=== PATIENT | female | born 1965 | race Caucasian/White ===

== ENCOUNTER 2019-03-13 06:00 | Day surgery (SDC) | payer OTHER | END 2019-03-13 18:25 | disposition home or self-care (01) | LOC: CIR.AMB 06:00 | DX: N84.0 Polyp of corpus uteri (principal) ==

== ENCOUNTER 2022-08-25 09:28 | Outpatient (CLI) | payer OTHER | END 2022-08-25 09:29 | disposition home or self-care (01) | LOC: LAB 09:28 | PROVIDERS: ATTEND Obstetrics & Gynecology | DX: R53.1 Weakness (principal); R30.0 Dysuria; E55.9 Vitamin D deficiency, unspecified; E11.9 Type 2 diabetes mellitus without complications; E03.0 Congenital hypothyroidism with diffuse goiter; E78.2 Mixed hyperlipidemia; R10.2 Pelvic and perineal pain; Z12.11 Encounter for screening for malignant neoplasm of colon; C56.1 Malignant neoplasm of right ovary ==

== ENCOUNTER → 2022-08-25 | Outpatient (CLI) | payer OTHER | END | disposition home or self-care (01) | LOC: MAMO-SONO 10:22 | PROVIDERS: ATTEND Obstetrics & Gynecology | DX: Z12.31 Encounter for screening mammogram for malignant neoplasm of breast (principal); N60.21 Fibroadenosis of right breast; N60.22 Fibroadenosis of left breast ==

== ENCOUNTER 2025-09-25 10:10 | Outpatient (CLI) | payer OTHER | END 2025-09-25 10:14 | disposition home or self-care (01) | LOC: MAMO-SONO 10:10 | PROVIDERS: ATTEND Obstetrics & Gynecology | DX: N60.21 Fibroadenosis of right breast (principal); N60.22 Fibroadenosis of left breast; Z12.31 Encounter for screening mammogram for malignant neoplasm of breast ==